=== PATIENT | male | born 1985 | race Caucasian/White ===

== ENCOUNTER 2024-05-28 19:31 | Emergency (ER) | payer SELFPAY ==
--- NOTE | ~2024-05-28 | XR_ITS ---
XR shoulder RT min 2V Ordering provider: Alberta Hernandes PA-C History: . pt fell yesterday while playing [employer] . Comparison: None. FINDINGS: BONES: No acute fracture or dislocation. JOINT SPACES: The acromioclavicular joint is normal. The glenohumeral joint is normal. SOFT TISSUES: Normal. IMPRESSION: No acute osseous abnormality right shoulder. Reviewed, dictated and finalized at location A.
[2024-05-28 20:06] VITALS: BP 138/87; PULSE 82; RESP 14; TEMP 36.6; O2SAT 99
--- NOTE | 2024-05-28 20:58 | ED.UPPEXIN ---
HPI - Extremity Injury (Upper) General Chief Complaint: Extremity Injury, Upper Stated Complaint: Right shoulder injury/pain Time Seen by Provider: 05/28/24 20:13 Source: patient Mode of arrival: ambulatory Limitations: no limitations History of Present Illness HPI narrative: This is a 38 year old male that presents to the ER for right shoulder pain. Reports he was trying to catch a frisbee and landed on his shoulder. Reports pain and decreased ROM since. Denies numbness. Related Data Allergies Allergy/AdvReac Type Severity Reaction Status Date / Time No Known Allergies Allergy Verified 05/28/24 20:15 Review of Systems Review of Systems: CONSTITUTIONAL: Denies fever MUSCULOSKELETAL: Reports joint pain, and myalgia. NEUROLOGIC: Denies numbness, or weakness. All systems reviewed & are unremarkable except as noted in HPI and below PMFSH Past Medical History Medical History (Updated 05/28/24 @ 21:04 by Alberta Hernandes PA-C) No active medical problems Social History Social History (Updated 05/28/24 @ 21:00 by Alberta Hernandes PA-C) Smoking status: Current every day smoker Tobacco type: e-cigarettes/vaping Exam Narrative: GENERAL: Well-appearing, well-nourished, and in no acute distress. HEAD: Normocephalic, atraumatic. EYES: EOMI. CHEST: No respiratory distress. HEART: Regular rate EXTREMITIES: Decreased active ROM above 90 degrees due to pain. No edema or obvious deformity. Normal radial pulse SKIN: Warm, dry, no rash. NEURO: No focal deficits. Alert and oriented x3. PSYCH: Normal mood and affect Course Vital Signs Vital signs: Vital Signs Temperature 97.8 F 05/28/24 20:06 Pulse Rate 82 05/28/24 20:06 Respiratory Rate 14 05/28/24 20:06 Blood Pressure 138/87 05/28/24 20:06 Pulse Oximetry 99 05/28/24 20:06 Oxygen Delivery Room Air 05/28/24 20:06 Temperature 97.8 F 05/28/24 20:06 Pulse Rate 82 05/28/24 20:06 Respiratory Rate 14 05/28/24 20:06 Blood Pressure 138/87 05/28/24 20:06 Pulse Oximetry 99 05/28/24 20:06 Oxygen Delivery Room Air 05/28/24 20:06 MDM - Extremity Injury (Upper) MDM Narrative Medical decision making narrative: patient presents to the emergency department after a right shoulder injury. Reports he fell trying to catch a Frisbee. He is neurovascularly intact. Right shoulder x-ray without acute osseous abnormalities. Patient updated on his workup agrees with plan of care. He is to follow up with primary provider. He was given warnings to return to the ER Differential Diagnosis Differential diagnosis: Likely dislocation of shoulder and other (AC separation, muscle strain, contusion) Imaging Data Radiologist's impression: ITS Impressions Shoulder X-Ray 05/28/24 20:53 IMPRESSION: No acute osseous abnormality right shoulder. Critical Care Time Critical Care Time Critical Care Time: No Discharge Plan Discharge Clinical Impression: Acute pain of right shoulder Patient Disposition: Home, Self-Care Condition: Stable Instructions: Shoulder Pain (ED) Additional Instructions: Return to the ER if you experience fever, redness and swelling of your arm, weakness, numbness, or any other symptoms that are concerning to you Rest, use ice/heat, take anti-inflammatories (Aleve, Ibuprofen, Naproxen, etc) or Tylenol as needed for pain Follow up with your primary care doctor Follow-up/Referrals: PHYSICIAN,[facility]PER [facility]ER [Primary Care Provider] - Darshana Lynch DO [Physician] -
== END 2024-05-28 21:22 | disposition home or self-care (01) ==
PROVIDERS: Emergency Provider Physician Assistant
DX: M25.511 Pain in right shoulder (principal)
CPT/HCPCS: 73030; 99283; A4565